=== PATIENT | female | born 1960 | race Caucasian/White ===

== ENCOUNTER 2019-03-16 13:00 | Inpatient (IN) | payer MEDICAID ==
[~2019-03-16] VITALS: Ht 160 cm; Wt 83.9 kg
[2019-03-16 13:35] VITALS: BP_SYST 124
--- NOTE | 2019-03-16 13:43 | NUR ---
Patient to ER bed 3 to gown for evaluation. Side rails up.
--- NOTE | 2019-03-16 14:05 | NUR ---
Patient is awake, alert, and oriented x4. Patient is complaining of headache, neckpain, dizziness, shakiness, and dark urine since . Patient denies nausea, vomiting, and diarrhea.
--- NOTE | 2019-03-16 14:15 | NUR ---
ROOSEVELT Arora at bedside examining patient.
[2019-03-16] MEDS ORDERED: ONDANSETRON HCL 4 MG/2 ML VIAL IVP ONE (14:30)
[2019-03-16] MEDS ORDERED: NACL 0.9% 1,000 ML IV ONE ×2 (14:30→16:15)
[2019-03-16] MEDS ORDERED: MECLIZINE HCL 25 MG TABLET (ANITVERT) PO ONE (14:30)
--- NOTE | 2019-03-16 15:00 | NUR ---
X-ray at bedside.
[2019-03-16 15:01] LABS: BILIRUBIN,URINE 1+ (NEGATIVE); BLOOD, URINE 3+ (NEGATIVE); CLARITY/URINE CLEAR (CLEAR); COLOR,URINE YELLOW (YELLOW); GLUCOSE,URINE NEGATIVE (NEGATIVE); KETONES,URINE NEGATIVE (NEGATIVE); LEUKOCYTE ESTERASE ,URINE NEGATIVE (NEGATIVE); NITRITE, URINE NEGATIVE (NEGATIVE); PROTEIN URINE 2+ (NEGATIVE)
--- NOTE | 2019-03-16 15:02 | NUR ---
Patient transported to radiology via gurney, accompanied by dental service technician.
[2019-03-16 15:04] LABS: BASOPHILS % (AUTO) 0.2 % (0.0-2.0); EOSINOPHILS % (AUTO) 0.2 % (0.0-4.0); HEMATOCRIT 42.6 % (36-48); HEMOGLOBIN 14.1 g/dL (12.0-16.0); LYMPHOCYTES # (AUTO) 1.1 K/uL (1.0-5.5); LYMPHOCYTES % (AUTO) 6.7 % (20.5-51.5); MEAN CORPUSCULAR HEMOGLOBIN 28 pg (27-31); MEAN CORPUSCULAR HGB CONC 33 % (32-36); MEAN CORPUSCULAR VOLUME 86 fL (79.0-98.0); MONOCYTES # (AUTO) 0.7 K/uL (0.0-1.0); MONOCYTES % (AUTO) 4.5 % (1.7-9.3); NEUTROPHILS # (AUTO) 14.5 K/uL (1.8-7.7); NEUTROPHILS % (AUTO) 88.4 % (40.0-70.0); PLATELET COUNT (AUTO) 243 K/uL (130-430); RED BLOOD CELL COUNT(AUTO) 4.97 MIL/uL (4.2-6.2); RED CELL DISTRIBUTION WIDTH 15.2 % (9.0-15.0); WHITE BLOOD COUNT (AUTO) 16.4 K/uL (4.8-10.8)
[2019-03-16 15:14] LABS: CALCIUM 9.1 mg/dL (8.4-11.0); CREATININE 1.01 mg/dL (0.55-1.30); POTASSIUM 3.8 mmol/L (3.5-5.1)
[2019-03-16 15:18] LABS: BACTERIA,URINE FEW /HPF (None Seen); HYALINE CASTS, URINE 0-10 /LPF (None Seen); RBC,URINE 20-50 /HPF (0-3); WBC,URINE 0-3 /HPF (0-3)
[2019-03-16 15:20] LABS: ALBUMIN 2.7 g/dL (3.4-4.8); TOTAL BILIRUBIN 0.5 mg/dL (0.0-1.0)
[2019-03-16 15:23] LABS: MUCUS,URINE None Seen /LPF (None Seen)
[2019-03-16 15:28] LABS: BARBITURATE, URINE NEGATIVE (NEG <=200); BENZODIAZEPINE, URINE NEGATIVE (NEG <=150); CANNABINOID, URINE POSITIVE (NEG <=50); COCAINE, URINE NEGATIVE (NEG <=150); METHAMPHETAMINES SCREEN,URINE POSITIVE (NEG <=500); OPIATE, URINE NEGATIVE (NEG <=100); PHENCYCLIDINE SCREEN,URINE NEGATIVE (NEG <=25); URINE AMPHETAMINE POSITIVE (NEG <=500); URINE METHADONE NEGATIVE (NEG <=200); URINE OXYCODONE SCREEN NEGATIVE (NEG <=100); URINE PROPOXYPHENE SCREEN NEGATIVE (NEG <=300)
[2019-03-16 15:29] LABS: UR TRICYCLIC ANTIDEPRESSANTS NEGATIVE (NEG <=300)
--- NOTE | 2019-03-16 16:04 | NUR ---
Medication reconciliation completed with information provided by patient. Any prior medication reconciliation on file was reviewed and corrected.
--- NOTE | 2019-03-16 16:08 | NUR ---
MAX Arora made aware of abnormal vital signs.
[2019-03-16] MEDS ORDERED: VANCOMYCIN HCL 1,000 MG in NS 250 ML IV ONE (16:15)
[2019-03-16] MEDS ORDERED: PIPERACILLIN/TAZO 3.375 GM in NS 50 ML IV ONE (16:15)
[2019-03-16] MEDS ORDERED: PIPERACILLIN/TAZOBACTAM 3.375 GM/VIAL (ZOSYN) IV ONE (16:30)
--- NOTE | 2019-03-16 16:32 | NUR ---
Patient will be admitted to care of Dr. Finch. Admitted to medsurg unit. Waiting for room assignment. Belongings list completed. Complete and up to date summary report printed. SBAR report to be given at bedside with opportunity for questions.
[2019-03-16] MEDS ORDERED: ONDANSETRON HCL 4 MG/2 ML VIAL IVP PRN (16:45)
[2019-03-16] MEDS ORDERED: HYDROcodone/ACETAMIN 5-325 MG TAB (NORCO/ VICODIN) PO PRN (16:45)
[2019-03-16] MEDS ORDERED: VANCOMYCIN HCL 1000 MG/VIAL IV ONE (16:57)
[2019-03-16 17:23] LABS: INR 1.1 (0.8-1.2)
[2019-03-16 17:33] LABS: PHOSPHORUS 2.8 mg/dL (2.7-4.5); THYROID STIMULATING HORMONE 1.49 uIu/mL (0.36-3.74)
--- NOTE | 2019-03-16 19:20 | NUR ---
Report called in to TWIN Doyle for continuation of care.
--- NOTE | 2019-03-16 19:22 | NUR ---
Abnormal vitals reported to MAX Arora.
[2019-03-16] MEDS ORDERED: IBUPROFEN 800 MG TABLET PO ONE (19:30)
--- NOTE | 2019-03-16 19:37 | NUR ---
Report given to TWIN Al for continuation of care.
--- NOTE | 2019-03-16 19:54 | NUR ---
ADMIT NOTE Received pt from ER to the floor with a diagnosis of Pneumonia. Admission process initiated. patient oriented to pain management, safety and call light-teach back done.
--- NOTE | 2019-03-16 20:00 | NUR ---
Initial RN notes Pt AAOx4, pt has fever 100.0. Cooling measures provided. Pt denies any pain or dizziness. IV saline lock RAC 18G flushes well with NS. Fall precaution in place. Bed low, locked, siderails up x3, alarm on. Encouraged pt to use call light for assistance. Pt verb understanding. To monitor.
[2019-03-16 20:15] VITALS: BP_SYST 126
[2019-03-16] MEDS: DOCUSATE SODIUM 100 MG CAPSULE PO SCH (21:00)
[2019-03-16] MEDS: MECLIZINE HCL 25 MG TABLET (ANITVERT) PO SCH (21:19)
[2019-03-16] MEDS: ACETAMINOPHEN 325 MG TABLET PO PRN (21:20)
--- NOTE | 2019-03-16 21:20 | NUR ---
Tylenol Tylenol 650mg PO given for Temp 100.0 as needed. Cooling measures provided. Pt's friend at bedside. Call light within reach. To monitor.
[2019-03-16] MEDS: PIPERACILLIN/TAZO 3.375/DEX-IS 50 ML IV SCH (23:25)
--- NOTE | 2019-03-17 00:02 | NUR ---
Rounds Pt asleep, easily arousable. VSS, afebrile. IV antibiotic administered as ordered. Call light within reach. Bed low, locked, siderails up x3, bed alarm on. To monitor.
[2019-03-17 00:03] VITALS: BP_SYST 101
--- NOTE | 2019-03-17 05:10 | NUR ---
Bathroom Pt assisted to bathroom, pt denies any sob or dizziness. Pt voided. Assisted back to bed. Call light within reach. To monitor.
[2019-03-17] MEDS: PIPERACILLIN/TAZO 3.375/DEX-IS 50 ML IV SCH ×3 (05:52→18:17)
--- NOTE | 2019-03-17 06:00 | NUR ---
Closing notes Pt awake, no s/s distress noted. Pt agreeable to have flu vaccine. Explained pt possible side effect, pt verbalized understanding. Flu vaccine administered per protocol. IV antibiotic administered R. AC 18G good blood return. Call light within reach. Safety maintained. To endorse to AM nurse.
--- NOTE | 2019-03-17 07:37 | NUR ---
rn opening note patient is awake and alert laying in bed no signs of any distress, breathing is equal and non labored. patient has no complaints at this time. patient educated telephone diaphragm assembler light for assistance. call light is with patient. patient has no other needs at this time. will continue to monitor.
[2019-03-17 08:32] VITALS: BP_SYST 120
[2019-03-17] MEDS: DOCUSATE SODIUM 100 MG CAPSULE PO SCH (08:37)
[2019-03-17] MEDS: MECLIZINE HCL 25 MG TABLET (ANITVERT) PO SCH ×2 (08:37→15:08)
--- NOTE | 2019-03-17 08:38 | NUR ---
medication patients scheduled medication given per order. patient is awake and alert, no signs of any distress, breathing is equal and non labored. patient educated webmethods consultant light , call light is with patient. patient has no other complaints at this time. will continue to monitor. patient is refusing stool softener at this time.
[2019-03-17 08:44] LABS: BASOPHILS % (AUTO) 0.2 % (0.0-2.0); EOSINOPHILS % (AUTO) 0.3 % (0.0-4.0); HEMOGLOBIN 13.3 g/dL (12.0-16.0); LYMPHOCYTES # (AUTO) 0.7 K/uL (1.0-5.5); LYMPHOCYTES % (AUTO) 8.6 % (20.5-51.5); MEAN CORPUSCULAR HEMOGLOBIN 28 pg (27-31); MEAN CORPUSCULAR HGB CONC 33 % (32-36); MEAN CORPUSCULAR VOLUME 85 fL (79.0-98.0); MONOCYTES # (AUTO) 0.4 K/uL (0.0-1.0); MONOCYTES % (AUTO) 4.5 % (1.7-9.3); NEUTROPHILS # (AUTO) 6.8 K/uL (1.8-7.7); NEUTROPHILS % (AUTO) 86.4 % (40.0-70.0); PLATELET COUNT (AUTO) 207 K/uL (130-430); RED BLOOD CELL COUNT(AUTO) 4.69 MIL/uL (4.2-6.2); RED CELL DISTRIBUTION WIDTH 15.6 % (9.0-15.0)
[2019-03-17 08:47] LABS: WHITE BLOOD COUNT (AUTO) 7.9 K/uL (4.8-10.8)
[2019-03-17 09:04] LABS: CALCIUM 8.3 mg/dL (8.4-11.0); CREATININE 0.86 mg/dL (0.55-1.30); POTASSIUM 3.8 mmol/L (3.5-5.1)
[2019-03-17] MEDS ORDERED: FLU VACC QS2019-20 36MOS UP/PF 60 MCG/0.5 ML SYRINGE I.M. PRN (10:00)
[2019-03-17] MEDS: ACETAMINOPHEN 325 MG TABLET PO PRN (11:30)
[2019-03-17 11:35] VITALS: BP_SYST 132
--- NOTE | 2019-03-17 11:37 | NUR ---
medication Patients scheduled medication given per order. patient also complains of a headache medicated per order. patient also states she feels like she is wheezing, prn orders available rt made aware. patient educated plant taxonomist light for assistance. call light is with patient. patient has no other complaints at this time. will continue to monitor.
--- NOTE | 2019-03-17 13:00 | NUR ---
RN ROUNDING PATIENT IS AWAKE AND ALERT SITTING UP IN BED. PATIENT HAS FRIEND AT BED SIDE. PATIENT HAS NO COMPLAINTS AT THIS TIME. EDUCATED WIRE FRAME MAKER LIGHT FOR ASSISTANCE. CALL LIGHT IS WITH PATIENT. PATIENT SHOWS NO SIGNS OF ANY DISTRESS, BREATHING IS EQUAL AND NON LABORED. WILL CONTINUE TO MONITOR.
--- NOTE | 2019-03-17 14:18 | NUR ---
Paving Machine Operator: Met with pt. to conduct a DCPA and a social work interview. OIL SPRAYING MACHINE OPERATOR met with pt. who was friendly and willing to participate in this interview. Pt. stated stated the address listed in the address of a friends home. She stated she has been moving from friends home to friends home and has been homeless for over a year. 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 OIL SPRAYING MACHINE OPERATOR gave pt. some resources including a homeless packet, substance abuse resources, mental health resources and winter homeless intermediate info. OIL SPRAYING MACHINE OPERATOR also included a homeless waiver and homeless assessment in the documentation. OIL SPRAYING MACHINE OPERATOR stated she really does not have anyone to list as an emergency contact. She has a son who is 23 years old (resides in [facility]) ,but the last time she spoke or saw him was 15 years ago as his father took him away from her. OIL SPRAYING MACHINE OPERATOR asked pt. if she has ever had any formal mental health Dx. for anxiety, depression etc. Pt. stated she had not, but stated she feels a little on the depressed side. Pt. stated she did not feel suicidal at the moment, but did so a couple of weeks ago. When asked if she had a plan, she said she had access to her friends pills. She stays at various friends homes. Pt. stated she only receives food stamps, $190 per month , no family support, She has a sister who resides in [place] and resides in a [facility]. She also has a brother in [place] who has Lupus and she feels she cannot rely on them. OIL SPRAYING MACHINE OPERATOR asked her to contact a therapist and showed her the mental health referral. OIL SPRAYING MACHINE OPERATOR spoke to Rn. Patel to let her know pt. stated she was feeling depressed and had been feeling suicidal (pills) a couple of weeks ago. OIL SPRAYING MACHINE OPERATOR asked her to share this info with Dr. Finch. OIL SPRAYING MACHINE OPERATOR will remain available as needed.
--- NOTE | 2019-03-17 15:05 | NUR ---
MEDICATION PATIENTS SCHEDULED MEDICATION GIVEN ORDERED. PATIENT IS AWAKE AND ALERT NO SIGNS OF ANY DISTRESS, BREATHING IS EQUAL AND NON LABORED. PATIENT HAS ALL SAFETY PRECAUTIONS IN PLACE. CALL LIGHT IS WITH HER EDUCATED TO USE FOR ASSISTANCE. PATIENT HAS NO OTHER NEEDS AT THIS TIME. WILL CONTINUE TO MONITOR.
[2019-03-17 16:24] VITALS: BP_SYST 126
--- NOTE | 2019-03-17 17:37 | NUR ---
rn rounding patient is laying in bed. patient has all safety precautions in place. call light is with patient. educated to use call light for assistance. patient has no other needs at this time.
[2019-03-17] MEDS: IPRATROPIUM/ALBUTEROL SULFATE 3 ML AMPUL.NEB (DUONEB) INH PRN ×2 (17:43→18:35)
--- NOTE | 2019-03-17 18:18 | NUR ---
rn clsoing note patient scheduled medication given per order. patient is awake and alert, eating dinner in bed. patient is requesting a breathing treatment. patient has all safety precautions in place. rt called for breathing treatment. patient has call light with her educated to quiana call light . patient has no other needs at this time.
--- NOTE | 2019-03-17 19:45 | NUR ---
Opening notes Received report. Patient is resting in bed. No signs of distress noted. Breathing even and unlabored. IV patent and intact, no signs of infiltration noted. Patient did not eat dinner. Asked patient if shes going to eat, stated she will eat later. No other needs. Call light with the patient. Safety precautions in place.
--- NOTE | 2019-03-17 20:20 | NUR ---
Patient eloped RN went into room to check vital signs. Patient was not in bed or bathroom. Patient in Bed B stated she left. Informed security patient eloped. Patient was not found in hospital. Charge nurse and dry house worker made aware. At 2034, police was notified patient had left hospital with IV. No family information present in chart to contact. At 2099, Dr. Finch informed patient eloped with the IV.
--- NOTE | 2019-03-17 20:35 | NUR ---
[facility] ROONEY CALLED THOMAS ROONEY [phone] SPOKE WITH FELIPE TO NOTIFY THEM THAT THE PT ELOPED FROM THE HOSPITAL WITH A IV STILL INTACT. CHARGE NURSE , RN , AND SAP SOLUTION MANAGER CONSULTANT AWARE. GAVE DESCRIPTION OF ESTIMATED HEIGHT AND WEIGHT.
== END 2019-03-17 20:20 | disposition left against medical advice (07) | DRG 720 ==
LOC: SED 13:00 → SMU 16:29
PROVIDERS: ADMIT Student in an Organized Health Care Education/Training Program; ATTEND Student in an Organized Health Care Education/Training Program
DX: A41.9 Sepsis, unspecified organism (principal); E43 Unspecified severe protein-calorie malnutrition; J18.9 Pneumonia, unspecified organism; G90.9 Disorder of the autonomic nervous system, unspecified; E87.1 Hypo-osmolality and hyponatremia; Z53.29 Procedure and treatment not carried out because of patient's decision for other reasons; F15.10 Other stimulant abuse, uncomplicated; F12.10 Cannabis abuse, uncomplicated; Z71.51 Drug abuse counseling and surveillance of drug abuser; Z79.899 Other long term (current) drug therapy; Z68.32 Body mass index [BMI] 32.0-32.9, adult; Z59.0 Homelessness
CPT/HCPCS: 36415; 70450-TC; 71045; 80048; 80053; 80061; 80307; 81000-TC; 82550-TC; 83036; 83605; 83735-TC; 83880; 84100-TC; 84443-TC; 84484; 85025; 85610-TC; 85730-TC; 86710; 87040-TC; 87086; 93005; 93880; 94640; 94760; 96361; 96365; 96366; 96367; 96375; 99285; J2405; J2543; J3370; J7030; J7620; J8597